=== PATIENT | female | born 1985 | race Caucasian/White ===

== ENCOUNTER 2017-09-06 02:33 | Emergency (ER) | payer OTHER ==
--- NOTE | 2017-09-06 03:36 | ER Document Report ---
ED General - General Chief Complaint: Headache Stated Complaint: DIZZINESS Time Seen by Provider: 09/06/17 03:22 Notes: Patient is a pleasant 32-year-old female presents with complaint of edema. She just recently flew here from [place] yesterday. She said several days before she ever flew she was noticing she was having a lot of edema in her legs. When she raises her legs edema does improve but then it comes right back says she puts her legs down. She has been having some mild intermittent migraines. She had one today. The headache is since gone. It is gradual in onset. She says that she also has been having some dizzy spells. She says at times she feels like she is on a boat or off balance when she is up and walking around. She denies any chest pain. She says she has felt a little bit dyspneic compared to her baseline. She says that she has been very active and that she has been up and walking around a lot recently getting ready to move from [facility] back to the [facility]. She says that is when the swelling first started. Denies any history of cardiac issues. TRAVEL OUTSIDE OF THE [place] IN LAST 30 DAYS: No - Related Data Allergies/Adverse Reactions: codeine Allergy (Verified 09/06/17 02:37) Past Medical History - Social History Smoking Status: Never Smoker Frequency of alcohol use: None Drug Abuse: None Family History: Reviewed & Not Pertinent Review of Systems - Review of Systems Notes: My Normal Review Basic REVIEW OF SYSTEMS: CONSTITUTIONAL : Denies fever, chills, or sweats. Denies recent illness. EENT: Denies eye, ear, throat, or mouth pain or symptoms. Denies nasal or sinus congestion. CARDIOVASCULAR: Denies chest pain. RESPIRATORY: Mild dyspnea GASTROINTESTINAL: Denies abdominal pain. Denies nausea, vomiting, or diarrhea. GENITOURINARY: Denies difficulty urinating, painful urination, burning, frequency, or blood in urine. FEMALE GENITOURINARY: Denies vaginal bleeding, abnormal or irregular periods. MUSCULOSKELETAL: Leg swelling SKIN: Denies rash or skin lesions. NEUROLOGICAL: Denies altered mental status or loss of consciousness. Denies headache. Denies weakness or paralysis or loss of use of either side. Denies problems with gait or speech. Denies sensory or motor loss. ALL OTHER SYSTEMS REVIEWED AND NEGATIVE. Physical Exam - Vital signs Vitals: Temp Pulse Resp BP Pulse Ox 98.4 F 85 17 124/87 H 98 09/06/17 02:38 09/06/17 02:38 09/06/17 02:38 09/06/17 02:38 09/06/17 02:38 - Notes Notes: General Appearance: Well nourished, alert, cooperative, no acute distress, no obvious discomfort. Well-appearing. Vitals: reviewed, See vital signs table. Head: no swelling or tenderness to the head Eyes: PERRL, EOMI, Conjuctiva clear Mouth: No decreasd moisture Lungs: No wheezing, No rales, No rhonci, No accessory muscle use, good air exchange bilaterally. Heart: Normal rate, Regular rythm, No murmur, no rub Abdomen: Normal BS, soft, No rigidity, No abdominal tenderness, No guarding, no rebound, no abdominal masses, no organomegaly Extremities: strength 5/5 in all extremities, good pulses in all extremities, no swelling or tenderness in the extremities, 2+ bilateral lower extremity pitting edema. Skin: warm, dry, appropriate color, no rash Neuro: speech clear, oriented x 3, normal affect, responds appropriately to questions. Course - Re-evaluation Re-evalutation: 09/06/17 04:58 Patient's labs do not show any evidence of heart failure. Her lung aleman are clear. Her blood work does not show any evidence of proteinuria. She has normal albumin and normal kidney and liver function. I suspect that her swelling is related to gravity dependent edema most likely related to recent heat and also the fact that she is overweight. I did talk to her about this. Informed her that we will place her on Lasix for 5 days. We will have her wear compression stockings and keep her legs elevated when she is up walking around. Informed to return to ER immediately if she has difficulty breathing, increasing leg swelling, she feels unwell. Patient agrees with plan will be discharged home. I do not suspect DVT as the patient's leg swelling started before she ever had a long travel, she has bilateral equal leg edema, and she does not have constant pain in her legs. The only time she has pain is when the swelling becomes tight. Dictation of this chart was performed using voice recognition software; therefore, there may be some unintended grammatical errors. - Vital Signs Vital signs: Temp Pulse Resp BP Pulse Ox 98.4 F 85 17 124/87 H 98 09/06/17 02:38 09/06/17 02:38 09/06/17 02:38 09/06/17 02:38 09/06/17 02:38 - Laboratory Result Diagrams: 09/06/17 03:45 09/06/17 03:45 Laboratory results interpreted by me: 09/06/17 03:45 Chloride 109 H Discharge - Discharge Clinical Impression: Bilateral lower extremity edema Condition: Good Disposition: HOME, SELF-CARE Additional Instructions: Please take the Lasix as prescribed for a total of 5 days. Please buy over-the- counter compression stockings and wear them every day. Please keep your legs elevated when you are not on your feet. Please return to ER immediately if you have increasing swelling, difficulty breathing, chest pain, or feel unwell. Please follow-up with your doctor for reevaluation in 1 week. Prescriptions: Furosemide [Lasix 20 mg Tablet] 20 mg PO QAM #4 tablet
[2017-09-06 04:01] LABS: ABSOLUTE EOSINOPHILS # (AUTO) 0.3 10^3/uL (0.0-0.6); ABSOLUTE LYMPHOCYTES (AUTO) 3.7 10^3/uL (0.5-4.7); ABSOLUTE MONOCYTES (AUTO) 0.6 10^3/uL (0.1-1.4); BASOPHILS % (AUTO) 0.5 % (0-2); EOSINOPHILS % (AUTO) 3.1 % (0-6); HEMATOCRIT 41.2 % (36.0-47.0); LYMPHOCYTES % (AUTO) 42.7 % (13-45); MEAN CORPUSCULAR HEMOGLOBIN 29.7 pg (27.0-33.4); MEAN CORPUSCULAR HGB CONC 34.1 g/dL (32.0-36.0); MEAN CORPUSCULAR VOLUME 87 fl (80-97); MONOCYTES % (AUTO) 6.9 % (3-13); PLATELET COUNT 285 10^3/uL (150-450); RED BLOOD COUNT 4.73 10^6/uL (3.72-5.28); RED CELL DISTRIBUTION WIDTH 13.5 % (11.5-14.0); SEGMENTED NEUTROPHILS % (AUTO) 46.8 % (42-78); TOTAL CELLS COUNTED % (AUTO) 100 %; WHITE BLOOD COUNT 8.5 10^3/uL (4.0-10.5)
[2017-09-06 04:13] LABS: APPEARANCE,URINE CLEAR; BILIRUBIN,URINE NEGATIVE (NEGATIVE); COLOR,URINE STRAW; GLUCOSE, URINE NEGATIVE (NEGATIVE); KETONES,URINE NEGATIVE (NEGATIVE); LEUKOCYTE ESTERASE,URINE NEGATIVE (NEGATIVE); NITRITE,URINE NEGATIVE (NEGATIVE); PROTEIN,URINE NEGATIVE (NEGATIVE); URINE SPECIFIC GRAVITY 1.015; UROBILINOGEN,URINE NEGATIVE mg/dL (<2.0)
[2017-09-06 04:15] LABS: ALANINE AMINOTRANSFERASE 24 U/L (9-52); ALBUMIN 4.1 g/dL (3.5-5.0); ALKALINE PHOSPHATASE 74 U/L (38-126); ANION GAP 13 (5-19); ASPARTATE AMINO TRANSFERASE 18 U/L (14-36); BILIRUBIN,DIRECT 0.3 mg/dL (0.0-0.4); BILIRUBIN,TOTAL 0.5 mg/dL (0.2-1.3); BLOOD UREA NITROGEN 16 mg/dL (7-20); CALCIUM 9.3 mg/dL (8.4-10.2); CARBON DIOXIDE 23 mmol/L (22-30); CHLORIDE 109 mmol/L (98-107); GLUCOSE 84 mg/dL (75-110); POTASSIUM 4.3 mmol/L (3.6-5.0); SODIUM 144.5 mmol/L (137-145)
[2017-09-06] MEDS ORDERED: FUROSEMIDE 20 MG TABLET PO ONE (04:56)
[2017-09-06 05:20] VITALS: BP 107/74
== END 2017-09-06 05:20 | disposition home or self-care (01) ==
LOC: ER 02:33
DX: R60.1 Generalized edema (principal); R51 Headache; R42 Dizziness and giddiness; Z88.6 Allergy status to analgesic agent
CPT/HCPCS: 36415; 80053; 81001; 83880; 84703; 85025; 99284